=== PATIENT | male | born 1960 | race Two or more races ===

== ENCOUNTER 2024-01-26 11:27 | Emergency (ER) | payer SELFPAY ==
[~2024-01-26] VITALS: Ht 182.9 cm; Wt 105.0 kg
[2024-01-26 11:30] VITALS: O2SAT 100
[2024-01-26 12:07] LABS: CHLORIDE 104 mEq/L (98-107); POTASSIUM 3.3 mEq/L (3.5-5.1); SODIUM 142 mEq/L (136-145)
[2024-01-26 12:08] LABS: CARBON DIOXIDE 28 mEq/L (21-32)
[2024-01-26 12:09] LABS: CALCIUM 10.6 mg/dL (8.7-10.4)
[2024-01-26 12:13] LABS: CREATININE 0.9 mg/dL (0.6-1.3); GLUCOSE 110 mg/dL (70-105)
[2024-01-26 12:14] LABS: UREA NITROGEN BLOOD 16 mg/dL (9-23)
[2024-01-26 12:15] LABS: BASOPHILS % 0.7 % (0.0-2.0); EOSINOPHILS % 1.3 % (0.0-5.0); HEMATOCRIT. 45.5 % (42.0-52.0); LYMPHOCYTES % 15.3 % (20.0-50.0); MEAN CORPUSCULAR HEMOGLOBIN 32.7 pg (28.0-32.0); MEAN CORPUSCULAR HGB CONC 35.2 g/dL (31.0-37.0); MEAN CORPUSCULAR VOLUME 92.8 fL (80.0-94.0); MONOCYTES % 6.7 % (2.0-8.0); PLATELET 173 x1000/uL (130-400); RED BLOOD CELL COUNT 4.91 mill/uL (4.7-6.1); RED CELL DISTRIBUTION WIDTH 13.3 % (11.6-14.6); TROPONIN I HIGH SENSITIVITY 4 ng/L (3.0-53)
[2024-01-26 13:21] VITALS: BP 145/94; PULSE 70; RESP 16; TEMP 98.2
== END 2024-01-26 13:22 | disposition home or self-care (01) ==
LOC: ER 11:27 → CANBEDREQ 13:25
DX: S00.211A Abrasion of right eyelid and periocular area, initial encounter (principal); R55 Syncope and collapse; I10 Essential (primary) hypertension; X58.XXXA Exposure to other specified factors, initial encounter; Y93.89 Activity, other specified; Y92.89 Other specified places as the place of occurrence of the external cause; Y99.8 Other external cause status
CPT/HCPCS: 36415; 71045; 80048; 83880; 84484; 85025; 93005; 99285